=== PATIENT | male | born 1950 | race Caucasian/White ===

== ENCOUNTER 2020-06-23 13:53 | Emergency (ER) | payer OTHER ==
[2020-06-23] MEDS ORDERED: DEXAMETHASONE SOD PHOS INJ 10 MG/1 ML VIAL IV ONE (14:18)
--- NOTE | 2020-06-23 14:21 | ER Document Report ---
ED Medical Screen (RME) - General Chief Complaint: Allergic Reaction Stated Complaint: POSSIBLE ALLERGIC REACTION Time Seen by Provider: 06/23/20 14:11 Mode of Arrival: Medic Information source: Patient Notes: 69-year-old male presented to ED for allergic reaction to multiple hornets stings. He states at the time of the hornet stings he called EMS because he was having very hard time breathing. He states his throat felt like it was swelling. When the EMS got there his blood pressure was 70/30s. He states they gave him IV Benadryl and he feels okay now. I did go back and speak with Dr. Noriega he states that if his blood pressure was that low he had anaphylactic reaction and he needs to be monitored. He states give him his IV steroids and then have him be placed on a monitor to ensure that he does not rebound. I have greeted and performed a rapid initial assessment of this patient. A comprehensive ED assessment and evaluation of the patient, analysis of test results and completion of medical decision making process will be conducted by an additional ED providers. - Related Data Allergies/Adverse Reactions: hornet venom Allergy (Verified 06/23/20 14:11) Home Medications: Meloxicam Physical Exam - Vital signs Vitals: Temp Pulse Resp BP Pulse Ox 97.6 F 61 16 142/79 H 98 06/23/20 14:00 06/23/20 14:00 06/23/20 14:00 06/23/20 14:00 06/23/20 14:00 Course - Vital Signs Vital signs: Temp Pulse Resp BP Pulse Ox 97.6 F 61 16 142/79 H 98 06/23/20 14:00 06/23/20 14:00 06/23/20 14:00 06/23/20 14:00 06/23/20 14:00
--- NOTE | 2020-06-23 15:30 | ER Document Report ---
ED General - General Chief Complaint: Allergic Reaction Stated Complaint: POSSIBLE ALLERGIC REACTION Time Seen by Provider: 06/23/20 14:11 Mode of Arrival: Medic Notes: 69-year-old man presents to the emergency department with a history of stung by hornets this morning at approximately noon, EMS was called patient was found to be hypotensive with systolic blood pressure of 70, he is given IV Benadryl and fluids with an improvement of the blood pressure. Patient states that he has an allergy to wasp/hornets. He had one episode where he had to be resuscitated after being stung. He has used EpiPen's in the past. Patiently he denies difficulty swallowing or breathing and has no associated rash. He was stung on his right antecubital area, left leg x2, and on the back x1. - Related Data Allergies/Adverse Reactions: hornet venom Allergy (Verified 06/23/20 14:11) Home Medications: Meloxicam Past Medical History - General Information source: Patient - Social History Smoking Status: Unknown if Ever Smoked Family History: Reviewed & Not Pertinent Review of Systems - Review of Systems Notes: Constitutional: Negative for fever. HENT: Negative for sore throat. Eyes: Negative for visual changes. Cardiovascular: Negative for chest pain. Respiratory: Negative for shortness of breath. Gastrointestinal: Negative for abdominal pain, vomiting or diarrhea. Genitourinary: Negative for dysuria. Musculoskeletal: Negative for back pain. Skin: + Hornet sting Neurological: Negative for headaches, weakness or numbness. 10 point ROS negative except as marked above and in HPI. Physical Exam - Vital signs Vitals: Temp Pulse Resp BP Pulse Ox 97.6 F 61 16 142/79 H 98 06/23/20 14:00 06/23/20 14:00 06/23/20 14:00 06/23/20 14:00 06/23/20 14:00 - Notes Notes: PHYSICAL EXAMINATION: Physical Exam: General: Well-nourished well-developed 69-year-old man in no acute distress in no acute distress HEENT: NC/AT, pupils equal round and reactive to light, MM moist,nares clear, oropharynx clear, airway patent Neck: supple, no adenopathy, no masses. Good range of motion Lungs: clear, no wheezing, no rales no rhonchi CVS: Regular rate and rhythm no murmur gallop or rub Abdomen: Soft, active, nontender, no masses, no hepatosplenomegaly Ext: No edema, clubbing or cyanosis. Neuro: Alert and responsive, moving all 4 extremities on command, cranial nerves intact, no focal findings Skin: Intact no open lesions, no rash PSYCH: Normal mood, normal affect. Course - Re-evaluation Re-evalutation: 06/23/20 16:14 Patient has been on well he is approximately 4 hours post sting by hornets and anaphylaxis. He is being discharged home with an EpiPen, prednisone and instructions to use Benadryl if he has rash itching or increasing redness. Patient and significant other acknowledges understanding of this plan states that he is ready to go home. - Vital Signs Vital signs: Temp Pulse Resp BP Pulse Ox 97.6 F 61 16 142/79 H 98 06/23/20 14:00 06/23/20 14:00 06/23/20 14:00 06/23/20 14:00 06/23/20 14:00 Discharge - Discharge Clinical Impression: Anaphylaxis Qualifiers: Encounter type: initial encounter Qualified Code(s): T78.2XXA - Anaphylactic shock, unspecified, initial encounter Sting from hornet, wasp, or bee Qualifiers: Encounter type: initial encounter Injury intent: accidental or unintentional Qualified Code(s): T63.451A - Toxic effect of venom of hornets, accidental (unintentional), initial encounter; T63.441A - Toxic effect of venom of bees, accidental (unintentional), initial encounter; T63.461A - Toxic effect of venom of wasps, accidental (unintentional), initial encounter Condition: Good Disposition: HOME, SELF-CARE Instructions: Anaphylaxis Kit ([facility]) Additional Instructions: You are seen in the emergency department with a reaction secondary to being stung by hornets today. You are given a prescription for an epinephrine pen and medications to use if your symptoms are recurrent. Please avoid wasp and hornet as repeated stings may have worsened symptoms. Please use your epinephrine pen if you are stung in the future. HOME CARE INSTRUCTIONS & INFORMATION: Thank you for choosing us for your medical needs. We hope you're satisfied with the care you received. After you leave, you must properly care for your problem and, at the same time, observe its progress. Any condition can change. Some illnesses can change rapidly over hours or days. If your condition worsens, return to the Emergency Department or see your physician promptly. ABOUT YOUR X-RAYS AND EKG'S: If you had an EKG or X-rays taken, they have been read by the Emergency Physician. The X-rays and EKG's will also be read by a Radiologist or Consumer Affairs Manager within 24 hours. If discrepancies are noted, you will be notified by telephone. Please be certain the ED has a correct telephone number & address where you can be reached. Also, realize that some fractures or abnormalities do not show up on initial X-rays. If your symptoms continue, see your physician. ABOUT YOUR LABORATORY TEST: If you had laboratory tests, the results have been reviewed by the Emergency Physician. Some test results (for example cultures) may not be available for several days. You will be contacted if any test result shows you need additional treatment. Please be certain the ED has a correct telephone number and address where you can be reached. ABOUT YOUR MEDICATIONS: You will receive instructions on how to take your medicine on the prescription label you receive. Additional information may be provided by the Pharmacy. If you have questions afterwards, call the ED for clarification or further instructions. Some prescribed medications may cause drowsiness. Do not perform tasks such as driving a car or operating machinery without consulting your Pharmacist. If you feel you need a refill of pain medication, your condition will need re-evaluation. Please do not call for a refill of any medication. ABOUT YOUR SIGNATURE: Signature of this document acknowledges to followin. Understanding that you received emergency treatment and that you may be released before al medical problems are known or treated. Please be certain the ED has a correct phone number & address where you can be reached. 2. Acknowledgement that you will arrange for follow-up care as recommended. 3. Authorization for the Emergency Physician to provide information to your follow-up Physician in order to maximize your care. AT ANY TIME, IF YOUR SYMPTOMS CHANGE SIGNIFICANTLY OR WORSEN OR YOU DEVELOP NEW SYMPTOMS, RETURN TO THE EMERGENCY DEPARTMENT IMMEDIATELY FOR RE-EVALUATION. OUR GOAL IS TO PROVIDE EXCELLENT MEDICAL CARE! WE HOPE THAT WE HAVE MET YOUR EXPECTATIONS DURING YOUR EMERGENCY DEPARTMENT VISIT AND THAT YOU FEEL YOU HAVE RECEIVED EXCELLENT CARE! Prescriptions: Prednisone [Deltasone 20 mg Tablet] 20 mg PO BID #10 tablet Epinephrine [Epipen 2-Joshua] 0.3 mg IM ONCE PRN #1 packet PRN Reason:
[2020-06-23 16:35] VITALS: BP 126/69
== END 2020-06-23 16:35 | disposition home or self-care (01) ==
LOC: ER 13:53
DX: T63.451A Toxic effect of venom of hornets, accidental (unintentional), initial encounter (principal); T78.2XXA Anaphylactic shock, unspecified, initial encounter
CPT/HCPCS: 99283; 96374; J1100